=== PATIENT | female | born 1980 | race Caucasian/White ===

== ENCOUNTER 2018-04-13 00:58 | Observation (INO) | payer BC ==
[2018-04-13 02:02] LABS: #Basophils 0.1 thou/uL (0.0-0.2); #Lymphocytes 0.7 thou/uL (1.20-3.40); #Monocytes 0.8 thou/uL (0.11-0.59); #Neutrophils 10.1 thou/uL (1.40-6.50); %Basophils 0.7 % (0.0-1.0); %Eosinophils 0.2 % (0.0-10.0); %Lymphocytes 5.9 % (21.0-51.0); %Monocytes 6.4 % (0.0-10.0); %Neutrophils 86.8 % (42.0-75.0); Hemoglobin 13.4 g/dL (12.0-16.0); Mean Corpuscular HGB CONC 33.5 g/dL (32.0-36.0); Mean Corpuscular Hemoglobin 31.8 pg (27.0-31.0); Mean Platelet Volume 9.1 fL (7.4-10.4); Platelet Count 179 thou/uL (130-400); RBC Distribution Width 11.4 % (11.5-14.5); Red Blood Cell (RBC) Count 4.22 mill/uL (4.20-5.40); White Blood Cell (WBC) Count 11.6 thou/uL (4.8-10.8)
[2018-04-13] MEDS ORDERED: Morphine 4 MG/ML VIAL ONE ×2 (02:04→04:13)
[2018-04-13] MEDS ORDERED: Ondansetron HCl/PF 4 MG/2 ML Vial ONE ×2 (02:05→14:29)
[2018-04-13] MEDS ORDERED: Ketorolac Tromethamine 30 MG/ML VIAL ONE ×2 (02:05→14:29)
[2018-04-13 02:38] LABS: ALT (SGPT) 16 U/L (8-55); AST (SGOT) 18 U/L (5-34); Albumin 4.5 g/dL (3.5-5.0); Alkaline Phosphatase 48 U/L (40-150); Anion Gap 13 mmol/L (10-20); BUN (Urea Nitrogen) 12 mg/dL (7.0-18.7); Bilirubin, Total 0.5 mg/dL (0.2-1.2); Calc. Creatinine Clearance 0 mL/min (70-130); Calcium 9.6 mg/dL (7.8-10.44); Carbon Dioxide 23 mmol/L (22-29); Chloride 104 mmol/L (98-107); Estimated GFR-MDRD Greater than 90; Glucose 112 mg/dL (70-105); Lipase 24 U/L (8-78); Potassium 3.9 mmol/L (3.5-5.1); Protein, Total 7.5 g/dL (6.0-8.3); Sodium 136 mmol/L (136-145)
[2018-04-13 04:28] LABS: Bilirubin Negative (Negative); Blood, Urine Negative (Negative); Clarity CLEAR (Clear); Glucose, Urine (Dipstick) Negative (Negative); Leukocyte Negative (Negative); Nitrite Negative (Negative); Protein, Urine (Dipstick) Negative (Neg-Trace); Specific Gravity, Urine 1.015 (1.002-1.036)
[2018-04-13] MEDS ORDERED: Piperacillin/Tazobactam 3.375 GM VIAL ONE (05:17)
[2018-04-13] MEDS ORDERED: Ondansetron ODT 4 MG TAB SL PRN (06:09)
[2018-04-13] MEDS ORDERED: Morphine 4 MG/ML VIAL IV PRN (06:09)
[2018-04-13] MEDS ORDERED: Ondansetron HCl/PF 4 MG/2 ML Vial IVP PRN ×2 (06:09→10:08)
[2018-04-13] MEDS: Sodium Chloride 0.9% 1,000 ML IV SCH ×2 (06:13→13:28)
[2018-04-13 07:56] VITALS: BMI 21.9
--- NOTE | 2018-04-13 09:03 | HP ---
DATE OF ADMISSION: 04/13/2018 HISTORY OF PRESENT ILLNESS: Ms. King is a 38-year-old woman, presented to emergency department wi th a complaint of insidious onset of what started as supraumbilical crampy abdominal pain, which star carmen approximately 1500 hours yesterday. Pain has since started in the right lower quadrant where it has persisted. Pain now is rated at 7/10, associated with nausea, but no emesis. The patient denies any diarrhea. She denies any unexplained weight loss. She denies any hematochezia or melena. PAST MEDICAL HISTORY: Pertinent for chronic anxiety disorder. PAST SURGICAL HISTORY: Pertinent for excision of a mole in her abdominal wall. Other surgeries incl ude laparoscopic-assisted hysterectomy. SOCIAL HISTORY: She is a dentist by profession. She admits to occasional intake of ethanol in moder ate amounts. She denies any cigarette smoking or illicit drug abuse. ALLERGIES: SULFA DRUGS. PREHOSPITAL MEDICATIONS: Include Lexapro 20 mg p.o. daily and occasional Protonix, which she takes f or gastroesophageal reflux disease. FAMILY HISTORY: Notable for mother with chronic anxiety and father with diabetes mellitus and essent ial hypertension. She denies any family history of heart disease, inflammatory bowel disease, or can cer. REVIEW OF SYSTEMS: A 10-point review of systems is essentially unremarkable except for as stated in past medical history and chief complaint. PHYSICAL EXAMINATION: GENERAL: This reveals a 38-year-old normally developed woman, who is otherwise coherent and interact anastasiia and appears stated age. The patient is alert and oriented x3. She appears to be in no significa nt acute distress at the time of my evaluation. VITAL SIGNS: Include blood pressure 104/67, pulse 78, respiratory rate is 16, temperature is 98.3 de grees Fahrenheit, oxygen saturation is 97% on room air. HEENT EXAMINATION: Reveals normocephalic and atraumatic. Pupils are equal, round, reactive to light and accommodation. HEART: Reveals regular rate and rhythm. No murmurs or gallops auscultated. LUNGS: Clear to auscultation bilaterally. Her breathing is regular and unlabored. ABDOMEN: Soft, moderately distended. She has right lower quadrant tenderness at McBurney's. She nicolas s a positive Rovsing sign. Liver and spleen nonpalpable below costal margin. EXTREMITIES: Reveal 2+ radial and pedal pulses bilaterally. No ankle edema is present. NEUROLOGIC EXAMINATION: Reveals no focal deficits present. PERTINENT LABORATORY FINDINGS: Today include a CBC with 11,600 white blood cells, hemoglobin and hem atocrit 13.4 and 40.1 respectively. Platelet count is 179,000. Metabolic profile: Sodium 136, pota ssium is 3.9, chloride is 104, bicarbonate is 23, BUN 12, creatinine 0.62, glucose 112. Total biliru bin 0.5, AST and ALT normal at 18 and 16 respectively. C-reactive protein is 2.02. Serum lipase is 24. Urinalysis is essentially unremarkable except for trace ketones. I have personally reviewed the CT scan of the abdomen and pelvis, which reveals a dilated appendix with periappendiceal fat strandi ng. There is minimum free fluid noted. No pneumoperitoneum is evident. IMPRESSION: Acute appendicitis. PLAN: Laparoscopic appendectomy. I have advised the patient of the above findings and plan at prese nt. I have also advised of the risks and benefits of the proposed surgery to include, but not limite d to bleeding, infection, injury to bowel or surrounding structures. The patient has indicated under standing of the information I have provided to her in the presence of our nurse. I have also answere d her questions. The patient has granted consent for this admission and surgical intervention.
[2018-04-13] MEDS ORDERED: Fentanyl 100 MCG/2 ML VIAL ONE (09:55)
--- NOTE | 2018-04-13 09:59 | CT ---
PRELIMINARY REPORT/[facility]/EMERGENTY AFTER-HOURS PROCEDURE Addendum created by Ramos Mendez MD on 04/13/2018 4:59 AM Central Time ([place] & [place]) Report of this case was discussed with GIA Chua at 4:58 AM CDT, 04/13/2018. The findings we re acknowledged and understood. Initial Report created on 04/13/2018 4:52 AM Central Time ([place] & [place]) EXAM: CT Abdomen and Pelvis With Intravenous Contrast CLINICAL HISTORY: 38 years old, female; Pain; Abdominal pain; Localized; Right lower quadrant (rlq); Prior surgery; Pat ient HX: F38 presented to ed C/O rlq abdominal pain onset 1600 today. Pt describes onset of pain as s udden and reports that the pain radiates to her back. Pt reports the pain was dull. Pt reports her first symptom was nausea, followed by a sudden onset of dull pain at the middle of her stomach that m igrated to her rlq. Pt reports fever with symptoms, tmax 103 oral temp. Pt denies vomiting, but notes that she took a zofran for the nausea. Pt denies diarrhea, constipation, uti symptoms, or vaginal d/ c. Pt reports surgical HX of hysterectomy a year ago TECHNIQUE: Axial computed tomography images of the abdomen and pelvis with intravenous contrast. Coronal reformatted images were created and reviewed. COMPARISON: No relevant prior studies available. FINDINGS: The lung bases are clear. No definite gallbladder abnormality by CT. No biliary tree dilation. Possible small subcentimeter right renal cyst. No hydronephrosis of either kidney. No visible ureteral calculus. Unremarkable appearance of the liver, spleen, adrenal glands, and pancreas. No free air, ascites, or bowel distention. No retroperitoneal adenopathy. CT pelvis: There are findings compatible with acute appendicitis. The appendix is fluid-filled and dilated up to 8 mm. Some appendiceal wall thickening/enhancement. There are mild to moderate surrounding inflammatory changes. No obvious abscess or extraluminal gas. The appendix is in a retrocecal location. There are no CT findings to suggest diverticulitis. Prior hysterectomy. The right ovary contains an 18 mm dominant follicle versus very small collapsing cyst. Significance u ncertain due to small size. No significant cul-de-sac fluid. IMPRESSION: Findings compatible with acute appendicitis, see above details. No free air or bowel distention. The right ovary contains an 18 mm dominant follicle versus very small collapsing cyst. Significance u ncertain due to small size. No significant cul-de-sac fluid. Other findings discussed above. Thank you for allowing us to participate in the care of your patient. Dictated and Authenticated by: Ramos Mendez MD 04/13/2018 4:52 AM Central Time ([place] & [place]) FINAL REPORT CT ABDOMEN AND PELVIS WITH IV AND ORAL CONTRAST: DATE: 04/13/2018. TIME: Performed on an emergency basis at 0352 hours. HISTORY: Right lower quadrant pain. FINDINGS: Agree with the preliminary report by Dr. Mendez from [facility]. Consistent with acute appendi citis. POS: [facility]
[2018-04-13] MEDS ORDERED: Promethazine HCl 25 MG/ML VIAL SLOW IVP PRN (10:08)
[2018-04-13] MEDS ORDERED: Promethazine HCl 25 MG/ML VIAL IM PRN (10:08)
[2018-04-13] MEDS ORDERED: Ketorolac Tromethamine 30 MG/ML VIAL IVP PRN (10:08)
[2018-04-13] MEDS ORDERED: traMADol HCl 50 MG TAB PO PRN (11:54)
[2018-04-13] MEDS ORDERED: Ibuprofen 600 MG TAB PO PRN (11:54)
[2018-04-13] MEDS ORDERED: Bupivacaine/Epinephrine 0.25% 30 ML VIAL ONE (11:59)
[2018-04-13] MEDS ORDERED: Piperacillin/Tazobactam 3.375 GM in Sodium Chloride 0.9% 100 ML IVPB SCH (12:00)
[2018-04-13] MEDS: Acetaminophen 500 MG TAB PO SCH ×3 (12:28→23:01)
[2018-04-13] MEDS ORDERED: Iopamidol 370 76% 50 ML VIAL FS ONE (13:38)
[2018-04-13] MEDS ORDERED: ISOVUE-370 76%-LOCM 1 ML ONE (13:38)
[2018-04-13] MEDS ORDERED: PHENYLEPHRINE-NS 100 MCG/ML 10 ML SYRINGE ONE (14:29)
[2018-04-13] MEDS ORDERED: Succinylcholine Chloride 20 MG/ML 10 ml SYRINGE FS ONE (14:29)
[2018-04-13] MEDS ORDERED: Glycopyrrolate 0.2 MG/ML 5 ML SYRINGE ONE (14:29)
[2018-04-13] MEDS ORDERED: ePHEDrine/0.9% NaCl/PF SYRINGE 50 mg/10 ml ONE (14:29)
[2018-04-13] MEDS ORDERED: Lidocaine 1% PF 5 ML VIAL ONE (14:29)
[2018-04-13] MEDS ORDERED: Dexamethasone 20 MG/5 ML VIAL ONE (14:29)
[2018-04-13] MEDS ORDERED: PROPOFOL 200 MG/20 ML VIAL ONE (14:29)
--- NOTE | 2018-04-13 16:22 | OP ---
DATE OF OPERATION: 04/12/2018 PREOPERATIVE DIAGNOSIS: Acute appendicitis. POSTOPERATIVE DIAGNOSIS: Acute appendicitis. PROCEDURES PERFORMED: Laparoscopic appendectomy. SURGEON: Ry Tobar D.O. ANESTHESIA: General endotracheal. ESTIMATED BLOOD LOSS: 10 mL. FLUIDS GIVEN: 650 mL crystalloids. COUNTS: Sponge and instrument count certified as correct x2. COMPLICATIONS: None apparent at time of operation. INDICATIONS FOR PROCEDURE: A 38-year-old woman presented with 24-hour history of what started as a s upraumbilical crampy abdominal pain which settled in the right lower quadrant. Clinical and radiogra phic examination was consistent with acute appendicitis [facility] which [facility]. Findings are consistent with suppurative, but nonperforated appendix with the tip in the deep pelvis overlying the urinary bladder. DESCRIPTION OF PROCEDURE: Informed consent obtained from the patient who [facility] and placed in supine position. Following general anesthesia, a Eaton catheter was inserted. Aspiration has not been able to void over the last several hours. A 900 mL of your straw-colored uri ne was evacuated. Following this, the abdomen is sterilely prepped and draped in usual fashion. The skin above the umbilicus was infiltrated with 0.25% Marcaine with epinephrine. A 0.5 cm supraumbili arcenio incision is made using 11 scalpel. Umbilical stalk was grasped with Heath's and elevated. Lyubov ss needle was inserted through this incision and placed in the peritoneal cavity through which the ab domen was insufflated with 3 liters of CO2 gas. Intraabdominal pressure noted at 1 mmHg. Following abdominal insufflation, Veress needle was removed and a 5 mm trocar introduced using the Visiport und er laparoscopy. Laparoscopy confirmed proper placement of the port, no injuries to underlying struct ures. Additional laparoscopy reveals the right lower quadrant partially encased by omental adhesions . Under direct laparoscopy, a 5 mm suprapubic and a 12 mm left lower quadrant ports were placed afte r the overlying skin was infiltrated with 0.25% Marcaine with epinephrine and appropriate incisions m haleigh. The patient was placed in a Trendelenburg position, rotated to her left. I introduced a Noblivity grasper through the left lower quadrant port site using this to take down omental adhesions to rev eal a low hanging cecum and suppurative appendix in the deep pelvis. An Endo [place] forcep introduc ed through the suprapubic port site was used to grasp, the appendix was elevated. I then used a Dahlia conteh dissector to create a rent through the mesoappendix at the base. Using the LigaSure device, the mesoappendix were sterilely divided with good hemostasis. Appendix itself was divided between two E ndoloops at the appendical cecal junction. The appendix was then delivered of the abdominal cavity u sing an EndoCatch. Operative site was inspected for good hemostasis. Finding no other pathology, la paroscopy was terminated. Fascia of the left lower quadrant port was closed using 0 Vicryl suture an d Endo Close device under laparoscopy. The abdomen was desufflated. The remainder of the ports and instruments removed and accounted for. Skin incisions were closed using 4-0 Monocryl suture in subcu ticular fashion. Dermabond was applied over the incisional closure. The patient tolerated the opera tion without any apparent complication and was returned to recovery room in a satisfactory condition.
[2018-04-13] MEDS: traMADol HCl 50 MG TAB PO PRN (23:01)
[2018-04-14] MEDS: Acetaminophen 500 MG TAB PO SCH (05:03)
[2018-04-14] MEDS: traMADol HCl 50 MG TAB PO PRN (08:30)
[2018-04-14 11:33] VITALS: BP 107/74; TEMP 98.1
--- NOTE | 2018-04-14 12:44 | DIS ---
DATE OF ADMISSION: 04/13/2018 DATE OF DISCHARGE: 04/14/2018 ADMITTING PHYSICIAN: Ry Tobar MD. ADMITTING AND DISCHARGE DIAGNOSIS: Acute appendicitis. OPERATIONS PERFORMED: Laparoscopic appendectomy on 04/13/2018. HISTORY AND HOSPITAL COURSE: A 38-year-old woman presented with 24-hour history of abdominal pain. Clinical radiographic examination was consistent with acute appendicitis for which patient was carlie t to the operating room for appendectomy. Postoperatively, the patient had urinary retention that re quired one straight catheterization, returned 850 mL of urine. Preoperatively, she did have a 950 mL of urine when the catheter was placed intraoperatively. Decision was therefore made to place her on observation. By this morning, she is now urinating spontaneously. She is tolerating a diet. Pain is adequately controlled on oral analgesics. Incisional wounds remain clean and dry. She has no per itoneal signs on examination. The patient has remained hemodynamically stable and afebrile through this hospitalization. She will be discharged home with the following instructions: 1. She follows up with me in the Surgery Clinic in 2 weeks. 2. She is to call me with any questions or problems including exacerbation of abdominal pain, intole magda to oral intake, fever in excess of 101 degrees Fahrenheit. 3. She may shower effective tomorrow. 4. She is to avoid weightlifting in excess of 20 pounds, soaking herself in the bathtub or swimming until she has been released by me. 5. She may take Tylenol 1000 mg p.o. q.6 hours alternating this with ibuprofen 800 mg p.o. q.8 hours p.r.n. pain. Additionally, she was given a prescription for tramadol 50 mg #30 to be taken 1-2 p.o. q.6 hours p.r.n. pain. These instructions were given to the patient, who indicates understanding of the information given. I answered her questions. The patient has expressed gratitude for the care and surgery.
== END 2018-04-14 11:50 | disposition home or self-care (01) ==
LOC: ERS 00:58 → SURG A 05:15
PROVIDERS: ADMIT Surgery; ATTEND Surgery
PROC: 0DTJ4ZZ Resection of Appendix, Percutaneous Endoscopic Approach (ICD-10-PCS; principal; 2018-04-14)
DX: K35.33 Acute appendicitis with perforation, localized peritonitis, and gangrene, with abscess (principal); F41.9 Anxiety disorder, unspecified; K21.9 Gastro-esophageal reflux disease without esophagitis; R33.9 Retention of urine, unspecified; Z79.899 Other long term (current) drug therapy; Z88.2 Allergy status to sulfonamides
CPT/HCPCS: 36415; 51701; 74177; 80053; 81003; 83690; 85025; 86140; 87804; 88304; 96361; 96365; 96375; 96376; G0378; J0131; J1100; J1885; J2001; J2270; J2405; J2543; J2704; J3010